=== PATIENT | male | born 1980 | race African-American/Black ===

== ENCOUNTER 2017-11-27 22:39 | Emergency (ER) | payer SELFPAY ==
[~2017-11-27] VITALS: Ht 180.3 cm; Wt 82.0 kg
[2017-11-27] MEDS ORDERED: ONDANSETRON 4MG ODT PO ONE (23:30)
[2017-11-28 02:46] VITALS: BP 130/70
== END 2017-11-28 02:48 | disposition home or self-care (01) ==
LOC: ER 22:39
DX: F12.10 Cannabis abuse, uncomplicated (principal); R00.0 Tachycardia, unspecified; Z91.013 Allergy to seafood
CPT/HCPCS: 93005; 99283; Q0162; Z7610